=== PATIENT | female | born 1940 | race Caucasian/White ===

== ENCOUNTER 2019-02-07 22:34 | Emergency (ER) | payer MEDICARE, MEDICAID ==
[2019-02-07] MEDS ORDERED: Pseudoephedrine 30 MG Tab PO ONE (23:00)
--- NOTE | 2019-02-07 23:00 | EDM.PDOC ---
ED HPI GENERAL MEDICAL PROBLEM - General Time Seen by Provider: 02/07/19 22:44 Source of Information: Reports: Patient, EMS, Detention Records - History of Present Illness INITIAL COMMENTS - FREE TEXT/NARRATIVE: Pt presents to ER via EMS Nursing staff at [facility] pt in respiratory distress however EMS notes pt is ambulatory and without complaint when they arrived at the [place] Upon arrival to ER, pt without complaint ED ROS GENERAL - Review of Systems Review Of Systems: See Below Respiratory: Reports: Shortness of Breath ED EXAM, GENERAL - Physical Exam Exam: See Below Exam Limited By: No Limitations General Appearance: No Apparent Distress Throat/Mouth: Normal Oropharynx Neck: Supple Respiratory/Chest: Lungs Clear, Normal Breath Sounds Cardiovascular: Regular Rate, Rhythm GI/Abdominal: Non-Tender Extremities: No Pedal Edema Neurological: No Motor/Sensory Deficits Course - Re-Assessments/Exams Free Text/Narrative Re-Assessment/Exam: 02/07/19 22:57 Pt stable in ER Sisiter with patient Pt without complaint Departure - Departure Time of Disposition: 23:00 Disposition: DC/Tfer to Assisted Care [facility] Condition: Good Clinical Impression: Normal exam - Discharge Information Referrals: Celsa Lozano DO [Primary Care Provider] -
== END 2019-02-07 23:15 ==
LOC: VM.ED 22:34
DX: R06.02 Shortness of breath (principal)
CPT/HCPCS: 99285; A9270

== ENCOUNTER 2019-06-19 14:48 | Emergency (ER) | payer MEDICARE, MEDICAID ==
[2019-06-19] MEDS ORDERED: Sodium Chloride 0.9% 10 ML Syringe FLUSH PRN (15:07)
[2019-06-19] MEDS ORDERED: Albuterol/Ipratropium 3.0-0.5 MG/3 ML Neb Soln NEB ONE (15:12)
--- NOTE | 2019-06-19 15:25 | EDM.PDOC ---
ED HPI GENERAL MEDICAL PROBLEM - General Chief Complaint: Respiratory Problem Stated Complaint: SOB Time Seen by Provider: 06/19/19 15:09 Source of Information: Reports: Patient, Long Term Records (and SATURATOR OPERATOR from the half-way as well. ) History Limitations: Reports: Respiratory Distress - History of Present Illness INITIAL COMMENTS - FREE TEXT/NARRATIVE: Patient comes emergency department today from the [facility] for complaints of shortness of breath. This patient is a long-term resident of the [facility] who in the last week was tested for COVID with the rest of the patient's within their care center which were all negative. Over the past 4 hours the patient has had increasing shortness of breath to the point today where she was very visibly short of breath. Was noted to be somewhat hypoxic which she typically on 2 liters at the [place] but on 4 liters was still 88%. She was given a nebulizer without improvement of her symptoms and was sent to the emergency department for further evaluation. Upon arrival HPI is difficult to obtain initially due to her distress and shortness of breath. She only whispers words which is not uncommon for her according to the nurse aide that is with her. The SATURATOR OPERATOR also reports the patient struggles with anxiety as well. She denies any pain in her chest. She complains of just shortness of breath and cannot catch her breath. No documented fever but subjective chills. No nausea no vomiting. No abdominal pain. Bilateral Axillary Pain Score (Numeric/FACES): 3 - Related Data Allergies Allergy/AdvReac Type Severity Reaction Status Date / Time No Known Allergies Allergy Verified 06/19/19 15:02 Home Meds: Home Meds Acetaminophen [Tylenol] 650 mg PO Q4HR PRN 02/07/19 [History] Past Medical History Respiratory History: Reports: COPD Other Respiratory History: ?COPD, one doctor stated Psychiatric History: Reports: Alzheimers Disease Oncologic (Cancer) History: Reports: Breast Social & Family History - Tobacco Use Smoking Status *Q: Unknown Ever Smoked ED ROS GENERAL - Review of Systems Review Of Systems: Comprehensive ROS is negative, except as noted in HPI. ED EXAM, GENERAL - Physical Exam Exam: See Below Free Text/Narrative:: Patient can only speak in 2 word sentences before she has to take a breath. Really appears more anxious than respiratory distress in my opinion. The SATURATOR OPERATOR in the room that knows her states anxiety is an issue for the patient. No audible wheezing but is quite dyspneic. Exam Limited By: Respiratory Distress General Appearance: Alert, Anxious, Moderate Distress Eye Exam: Bilateral Eye: EOMI, PERRL Ears: Normal External Exam, Normal TMs Nose: Normal Inspection Throat/Mouth: Normal Inspection (other than oral mucosa is dry. ), Normal Teeth , Normal Oropharynx, No Airway Compromise Head: Atraumatic, Normocephalic Neck: Normal Inspection, Supple, Non-Tender, Full Range of Motion Respiratory/Chest: Chest Non-Tender, Respiratory Distress, Decreased Breath Sounds (bases bilaterally and LEONA. ), Rhonchi (Scattered throughout bilaterally. ), Wheezing (late expiratory wheezing bilaterally. ), Accessory Muscle Use Cardiovascular: Normal Peripheral Pulses, Regular Rate, Rhythm, Tachycardia Peripheral Pulses: 2+: Radial (L), Radial (R), Posterior Tibial (L), Posterior Tibial (R), Dorsalis Pedis (L), Dorsalis Pedis (R) GI/Abdominal: Normal Bowel Sounds, Soft, Non-Tender (Female) Exam: Deferred Rectal (Female) Exam: Deferred Back Exam: Normal Inspection, Full Range of Motion Extremities: Normal Inspection, Non-Tender, Normal Capillary Refill, Pedal Edema (1+ bilaterally) Neurological: Alert, Oriented, Normal Cognition, No Motor/Sensory Deficits Psychiatric: Anxious Skin Exam: Dry, Intact, Normal Color, Cool Lymphatic: No Adenopathy EKG INTERPRETATION EKG Date: 06/19/19 Time: 15:09 Rhythm: Other (Sinus tach) Rate (Beats/Min): 135 Course - Vital Signs Last Recorded V/S: Last Vital Signs Temp 36.4 C 06/19/19 14:50 Pulse 127 H 06/19/19 16:26 Resp 22 H 06/19/19 16:26 BP 118/68 06/19/19 16:26 Pulse Ox 96 06/19/19 16:26 - Orders/Labs/Meds Orders: Active Orders 24 hr Category Date Time Status BIPAP Adult [RT BiPAP/CPAP] [RC] ASDIRECTED Care 06/19/19 16:16 Active EKG Documentation Completion [RC] STAT Care 06/19/19 15:07 Active RT Aerosol Therapy [RC] ASDIRECTED Care 06/19/19 15:12 Active Chest w Cont [CT] Stat Exams 06/19/19 15:42 Ordered CULTURE BLOOD [BC] Stat Lab 06/19/19 15:24 Received CULTURE BLOOD [BC] Stat Lab 06/19/19 15:34 Received Sodium Chloride 0.9% [Saline Flush] Med 06/19/19 15:07 Active 10 ml FLUSH ASDIRECTED PRN Blood Culture x2 Reflex Set [OM.PC] Stat Oth 06/19/19 15:08 Ordered Peripheral IV Insertion Adult [OM.PC] Stat Oth 06/19/19 15:07 Ordered Medication Orders Sodium Chloride (Saline Flush) 10 ml FLUSH ASDIRECTED PRN PRN Reason: Keep Vein Open Labs: Laboratory Tests 06/19/19 06/19/19 06/19/19 Range/Units 15:24 15:24 15:34 WBC 17.6 H (4.0-10.0) x10^3/uL RBC 4.84 (4.00-5.50) x10^6/uL Hgb 13.5 (12.0-16.0) g/dL Hct 42.4 (33.0-47.0) % MCV 87.6 (78.0-93.0) fL MCH 27.9 (26.0-32.0) pg MCHC 31.8 L (32.0-36.0) g/dL RDW Coeff of Fredy 15.0 (10.0-15.0) % Plt Count 338 (130-400) x10^3/uL Add Manual Diff Yes Neutrophils % (Manual) 72 (50-80) % Band Neutrophils % 4 (0-6) % Lymphocytes % (Manual) 13 L (25-50) % Monocytes % (Manual) 11 (2-11) % Poikilocytosis Anisocytosis 1+ slight H D-Dimer, Quantitative 7.57 H (<=0.58) mg/LFEU POC VBG pH (7.31-7.41) POC VBG pCO2 (41-51) POC VBG pO2 POC VBG HCO3 (23-28) POC VBG Total CO2 (24-29) POC VBG Base Excess ((-2) - 3) POC FiO2 Sodium 139 (136-145) mmol/L Potassium 5.4 H (3.5-5.1) mmol/L Chloride 101 (98-107) mmol/L Carbon Dioxide 20 L (21-32) mmol/L Anion Gap 23.4 H (10-20) mmol/L BUN 76 H* (7-18) mg/dL Creatinine 2.2 H (0.55-1.02) mg/dL Est Cr Clr Drug Dosing TNP Estimated GFR (MDRD) 22 Glucose 197 H (74-106) mg/dL Lactic Acid (0.4-2.0) mmol/L Calcium 9.7 (8.5-10.1) mg/dL Corrected Calcium 10.82 H (8.5-10.1) mg/dL Total Bilirubin 0.5 (0.2-1.0) mg/dL AST 52 H (15-37) U/L ALT 38 (14-59) U/L Alkaline Phosphatase 114 (46-116) U/L Troponin I < 0.017 (<=0.056) ng/mL C-Reactive Protein 18.9 H (<=0.9) mg/dL NT-Pro-B Natriuret Pep 1618 H (<=450) pg/mL Total Protein 7.9 (6.4-8.2) g/dL Albumin 2.6 L (3.4-5.0) g/dL Globulin 5.3 Albumin/Globulin Ratio 0.49 06/19/19 06/19/19 Range/Units 15:34 15:38 WBC (4.0-10.0) x10^3/uL RBC (4.00-5.50) x10^6/uL Hgb (12.0-16.0) g/dL Hct (33.0-47.0) % MCV (78.0-93.0) fL MCH (26.0-32.0) pg MCHC (32.0-36.0) g/dL RDW Coeff of Fredy (10.0-15.0) % Plt Count (130-400) x10^3/uL Add Manual Diff Neutrophils % (Manual) (50-80) % Band Neutrophils % (0-6) % Lymphocytes % (Manual) (25-50) % Monocytes % (Manual) (2-11) % Poikilocytosis Anisocytosis D-Dimer, Quantitative (<=0.58) mg/LFEU POC VBG pH 7.35 (7.31-7.41) POC VBG pCO2 39 L (41-51) POC VBG pO2 25 POC VBG HCO3 21 L (23-28) POC VBG Total CO2 22 L (24-29) POC VBG Base Excess -4 L ((-2) - 3) POC FiO2 0.32 Sodium (136-145) mmol/L Potassium (3.5-5.1) mmol/L Chloride (98-107) mmol/L Carbon Dioxide (21-32) mmol/L Anion Gap (10-20) mmol/L BUN (7-18) mg/dL Creatinine (0.55-1.02) mg/dL Est Cr Clr Drug Dosing Estimated GFR (MDRD) Glucose (74-106) mg/dL Lactic Acid 7.3 H* (0.4-2.0) mmol/L Calcium (8.5-10.1) mg/dL Corrected Calcium (8.5-10.1) mg/dL Total Bilirubin (0.2-1.0) mg/dL AST (15-37) U/L ALT (14-59) U/L Alkaline Phosphatase (46-116) U/L Troponin I (<=0.056) ng/mL C-Reactive Protein (<=0.9) mg/dL NT-Pro-B Natriuret Pep (<=450) pg/mL Total Protein (6.4-8.2) g/dL Albumin (3.4-5.0) g/dL Globulin Albumin/Globulin Ratio Meds: Medications Generic Name Dose Route Start Last Admin Trade Name Freq PRN Reason Stop Dose Admin Sodium Chloride 10 ml 06/19/19 15:07 Saline Flush FLUSH ASDIRECTED PRN Keep Vein Open Discontinued Medications Generic Name Dose Route Start Last Admin Trade Name Freq PRN Reason Stop Dose Admin Albuterol/Ipratropium 3 ml 06/19/19 15:12 06/19/19 15:35 Duoneb 3.0-0.5 Mg/3 Ml NEB 06/19/19 15:13 3 ml ONETIME ONE Administration Azithromycin 500 mg 06/19/19 15:57 06/19/19 16:00 Zithromax PO 06/19/19 15:58 500 mg ONETIME ONE Administration Ceftriaxone Sodium 2 gm 06/19/19 15:57 06/19/19 16:16 Rocephin IVPUSH 06/19/19 15:58 2 gm STAT ONE Administration Lactated Ringer's 1,000 mls @ 999 mls/hr 06/19/19 15:59 06/19/19 16:16 Ringers, Lactated IV 06/19/19 16:59 999 mls/hr ONETIME ONE Administration Methylprednisolone Sodium Succinate 125 mg 06/19/19 15:48 06/19/19 16:09 Solu-Medrol IVPUSH 06/19/19 15:49 125 mg ONETIME ONE Administration Morphine Sulfate 2 mg 06/19/19 15:42 06/19/19 15:46 Morphine IVPUSH 06/19/19 15:43 2 mg ONETIME ONE Administration Morphine Sulfate 2 mg 06/19/19 16:16 06/19/19 16:20 Morphine IVPUSH 06/19/19 16:17 2 mg ONETIME ONE Administration - Radiology Interpretation Free Text/Narrative:: Chest x-ray per radiology shows a pleural-parenchymal changes of the right hemithorax mediastinal pathology consider CT scan. Moderate right-sided effusion the right hilar region is abnormally prominent there is right paratracheal soft tissue fullness.Consider CAT scan of the chest - Re-Assessments/Exams Free Text/Narrative Re-Assessment/Exam: 06/19/19 16:10 DUO-neb with some improvement of work of breathing. She is still quite dyspneic and working hard to breath. I tried bipap with her but she was no claustrophobic and made her more anxious. She is requiring 4-5 liters of oxygen to keep her sats above 90%. Ceftriaxone 2 grams IVP Azithro 500mg PO SOlu-medrol 125mg IVP Blood cultures x 2 was drawn off initial lab draw. 06/19/19 16:16 She was placed on BiPAP with an IPAP of 12 and EPAP of 5 and FiO2 75%. She was given morphine for comfort prior to starting Bipap and she tolerated the bipap much better at this time. Tolerated the BiPAP well her respiratory rate improved down to 18-20 when she was left alone although when we enter the room she gets quite tachypneic once again and I really feel that this is an aspect of anxiety on top of her underlying pathology. Tv 400-425 500ml bolus of LR> WBC is 17 with a quite high lactic acid in the mid 7 CRP of almost 19. Also has an acute kidney injury with the creatinine of 2.2 with her baseline at 1. Although it is recommended to get a CT of the chest I am unable to at this time due to the patient's respiratory distress and creatinine I will be able to give her any contrast. She clearly needs more work-up and care than available here. I called and spoke with Dr. Su at [facility] in [place]. HPI ER Course findings and concerns were relayed to him. He accepted the patient in transfer at this time and no new orders. I reviewed my concerns with the patient. Unsure if she has a pneumonia but will cover for it and unable to complete her work up with a CT and really I don't believe she will be able to lay flat long enough for a CT of the chest. She is comfortable with transfer at this time. Questions answered. 06/19/19 16:54 06/19/19 17:42 Departure - Departure Time of Disposition: 16:36 Disposition: DC/Tfer to [facility] 02 Clinical Impression: RENZO (acute kidney injury), Hyperkalemia, Hypoxia, COPD with exacerbation, Pleural effusion on right, Respiratory distress Sepsis Qualifiers: Sepsis type: sepsis due to unspecified organism Sepsis acute organ dysfunction status: with acute organ dysfunction Severe sepsis acute organ dysfunction type : acute renal failure Acute renal failure type: unspecified Severe sepsis shock status: without septic shock Qualified Code(s): A41.9 - Sepsis, unspecified organism - Discharge Information Referrals: Celsa Lozano DO [Primary Care Provider] - Forms: ED Department Discharge, Interfacility Transfer [facility] Sepsis Event Note - Evaluation Sepsis Screening Result: No Definite Risk - Focused Exam Vital Signs: Vital Signs Temp Pulse Resp BP Pulse Ox Pulse Ox 06/19/19 16:26 127 H 22 H 118/68 96 06/19/19 15:52 139 H 36 H 118/68 90 L 06/19/19 15:35 91 L 06/19/19 14:50 36.4 C 140 H 32 H 135/101 H 92 L Date Exam was Performed: 06/19/19 Time Exam was Performed: 17:42 - My Orders Last 24 Hours: My Active Orders 06/19/19 15:07 EKG Documentation Completion [RC] STAT Sodium Chloride 0.9% [Saline Flush] 10 ml FLUSH ASDIRECTED PRN Peripheral IV Insertion Adult [OM.PC] Stat 06/19/19 15:08 Blood Culture x2 Reflex Set [OM.PC] Stat 06/19/19 15:12 RT Aerosol Therapy [RC] ASDIRECTED 06/19/19 15:24 CULTURE BLOOD [BC] Stat 06/19/19 15:34 CULTURE BLOOD [BC] Stat 06/19/19 15:42 Chest w Cont [CT] Stat 06/19/19 16:16 BIPAP Adult [RT BiPAP/CPAP] [RC] ASDIRECTED - Assessment/Plan Last 24 Hours: My Active Orders 06/19/19 15:07 EKG Documentation Completion [RC] STAT Sodium Chloride 0.9% [Saline Flush] 10 ml FLUSH ASDIRECTED PRN Peripheral IV Insertion Adult [OM.PC] Stat 06/19/19 15:08 Blood Culture x2 Reflex Set [OM.PC] Stat 06/19/19 15:12 RT Aerosol Therapy [RC] ASDIRECTED 06/19/19 15:24 CULTURE BLOOD [BC] Stat 06/19/19 15:34 CULTURE BLOOD [BC] Stat 06/19/19 15:42 Chest w Cont [CT] Stat 06/19/19 16:16 BIPAP Adult [RT BiPAP/CPAP] [RC] ASDIRECTED Assessment:: Respiratory distress needing bipap RENZO SEpsis without septic shock. hyperkalemia lactic acidosis new right pleural effusion. Plan: Transfer to [facility] for further care management and evaluation.
--- NOTE | 2019-06-19 15:38 | CR ---
[id number] RAD/RAD Chest PA or AP 1V EXAM: SINGLE VIEW CHEST. INDICATION: SHORTNESS OF BREATH COMPARISON: NO PREVIOUS SIMILAR EXAM IS AVAILABLE FINDINGS: There is a small to moderate right-sided effusion There is volume loss of the right hemithorax The aorta is tortuous The cardiac silhouette is enlarged The right hilar region is abnormally prominent There is right paratracheal soft tissue fullness Contrast CT soft tissue chest would be helpful IMPRESSION: PLEURAL-PARENCHYMAL CHANGES OF RIGHT HEMITHORAX MEDIASTINAL PATHOLOGY CONSIDER CAT SCAN Sonny Naylor MD 06/19/19 0342 Thank you for allowing us to participate in the care of your patient.
[2019-06-19] MEDS ORDERED: Morphine 2 MG/ML Syringe IVPUSH ONE ×2 (15:42→16:16)
[2019-06-19] MEDS ORDERED: methylPREDNISolone Sodium Succinate 125 MG/2 ML SDV IVPUSH ONE (15:48)
[2019-06-19] MEDS ORDERED: Azithromycin 250 MG Tab PO ONE (15:57)
[2019-06-19] MEDS ORDERED: cefTRIAXone 2 GM Vial IVPUSH ONE (15:57)
[2019-06-19] MEDS ORDERED: Lactated Ringers 1,000 ML IV ONE (15:59)
[2019-06-19 16:08] LABS: CHLORIDE,CL 101 mmol/L (98-107); SODIUM,NA 139 mmol/L (136-145)
[2019-06-19 16:12] LABS: ANION GAP 23.4 mmol/L (10-20)
== END 2019-06-19 17:18 | disposition short-term general hospital (02) ==
LOC: VM.ED 14:48
DX: A41.9 Sepsis, unspecified organism (principal); R65.20 Severe sepsis without septic shock; N17.9 Acute kidney failure, unspecified; E87.5 Hyperkalemia; J44.1 Chronic obstructive pulmonary disease with (acute) exacerbation; J90 Pleural effusion, not elsewhere classified; R09.02 Hypoxemia; G30.9 Alzheimer's disease, unspecified; F02.80 Dementia in other diseases classified elsewhere, unspecified severity, without behavioral disturbance, psychotic disturbance, mood disturbance, and anxiety
CPT/HCPCS: 36415; 71045; 80053; 82803; 83605; 83880; 84484; 85025; 85379; 86140; 87040; 93005; 93010; 94640; 94660; 96361; 96374; 96375; 96376; 99284-GF; 99285-25; A9270-GY; J0696; J2270; J2930; J7120; J7620-GY